=== PATIENT | female | born 2000 | race African-American/Black ===

== ENCOUNTER 2024-10-27 19:34 | Emergency (ER) | payer MEDICAID ==
[~2024-10-27] VITALS: Ht 172.7 cm; Wt 80.0 kg
[2024-10-27 19:41] VITALS: O2SAT 97
[2024-10-27 19:45] VITALS: BP 147/85; PULSE 102; RESP 18; TEMP 36.9; O2SAT 100
[2024-10-27] MEDS ORDERED: TOPUD MT (22:39)
[2024-10-27] MEDS ORDERED: ACYC5CRE8 TP (22:42)
== END 2024-10-27 23:20 | disposition home or self-care (01) ==
LOC: ER 19:34
DX: O98.519 Other viral diseases complicating pregnancy, unspecified trimester (principal); B00.9 Herpesviral infection, unspecified; Z79.899 Other long term (current) drug therapy; Z3A.21 21 weeks gestation of pregnancy
CPT/HCPCS: 81025; 99283